=== PATIENT | female | born 1970 | race Caucasian/White ===

== ENCOUNTER 2017-02-05 05:07 | Emergency (ER) | payer OTHER ==
[~2017-02-05] VITALS: Ht 175.3 cm; Wt 125.5 kg
[2017-02-05 05:17] VITALS: Ht 175.3 cm; Wt 125.5 kg
[2017-02-05] MEDS ORDERED: LIDOCAINE 1% (MDV) 20 ML INJ SC ONE (07:00)
[2017-02-05] MEDS ORDERED: ACETAMINOPHEN 325 MG TAB PO ONE (08:30)
[2017-02-05] MEDS ORDERED: ACET500C5 PO (09:19)
[2017-02-05] MEDS ORDERED: DOXY100T20 PO (09:30)
[2017-02-05] MEDS ORDERED: TRAM50TA2 PO (09:30)
[2017-02-05 09:45] VITALS: BP 138/95; PULSE 74; RESP 18; TEMP 98.2
--- NOTE | 2017-02-05 10:06 | ERD ---
ER Documentation Chief Complaint Date/Time DATE: 02/05/17 TIME: 10:00 Chief Complaint abscess to left labia, not draining and warm to touch per pt HPI 46-year-old female with a past medical history of HIV, hypertension, hyperlipidemia presents to the ED complaining of pain and cystlike structure on the suprapubic area of the left labia. Denies any fever, chills, abdominal pain , nausea, vomiting, diarrhea, no bleeding, vaginal discharge. Reports that her T-cell count was [id number]. Reports that she takes Kaletra, Truvada, Acyclovir , Pravastatin, Carvedilol, Amlodipine and Losartan. States that she smokes but denies any alcohol or drug use. ROS All systems reviewed and are negative except as per history of present illness. Medications Home Meds Active Scripts Doxycycline Hyclate* (Doxycycline Hyclate*) 100 Mg Tablet.dr, 100 MG PO BID for 10 Days, TAB Prov:SELWYN MANE PA-C 02/05/17 Tramadol HCl (Tramadol HCl) 50 Mg Tablet, 50 MG PO Q4 Y for PAIN, #20 TAB Prov:SELWYN MANE PA-C 02/05/17 PMhx/Soc History of Surgery: No Anesthesia Reaction: No Hx Neurological Disorder: No Hx Respiratory Disorders: No Hx Cardiac Disorders: No Hx Psychiatric Problems: No Hx Miscellaneous Medical Probl: Yes (HIV +) Hx Alcohol Use: Yes (SOCIALLY) Hx Substance Use: No Hx Tobacco Use: Yes (CIGGARETES) Smoking Status: Never smoker Physical Exam Vitals Vital Signs Date Time Temp Pulse Resp B/P Pulse Ox O2 Delivery O2 Flow Rate FiO2 02/05/17 05:17 96.0 81 20 142/99 20 Physical Exam Const: Kuf-ohz-[id number], well-nourished. In no acute distress. Head: Atraumatic, normocephalic Eyes: Normal Conjunctiva without injection. No purulent discharge. ENT: Normal external ear, nose. Moist oropharynx without tonsillar exudates. Non -erythematous pharynx. Uvula midline. No drooling. No trismus. Neck: No cervical midline tenderness. Full range of motion. No meningismus. No cervical lymphadenopathy. No JVD. Resp: Clear to auscultation bilaterally. No wheezing, rhonchi, rales, or crackles. No accessory muscle use. No retractions. Cardio: Regular rate and rhythm. No murmurs, rubs or gallops. Abd: Soft, nontender, non distended. Normal bowel sounds. No palpable masses. No rebound tenderness. No guarding. Negative McBurney's point. Negative psoas sign. Negative obturator sign. : 2 cm x 2 cm fluctuance noted over the left suprapubic region with no slight surrounding erythema. No edema, lymphatic streaking. No vaginal discharge, vaginal bleeding noted. Skin: No petechiae or rashes Back: No midline tenderness. No CVA tenderness. Ext: No cyanosis, or edema. Neur: Awake and alert. Normal gait. Normal coordination. Psych: Normal Mood and Affect Results 24 hrs Current Medications Medications (Trade) Dose Ordered Sig/Marian Route PRN Reason Start Time Stop Time Status Last Admin Dose Admin Lidocaine (Xylocaine 1% (Mdv) 20 ml) 20 ml ONCE ONCE SC 02/05/17 07:00 02/05/17 07:01 DC Acetaminophen (Tylenol Tab) 650 mg ONCE ONCE PO 02/05/17 08:30 02/05/17 08:32 DC 02/05/17 09:04 Procedures/MDM 46-year-old female with a past medical history of HIV, hyperlipidemia, hypertension presents to the ED complaining of a painful fluctuance noted over the left suprapubic region. Patient is afebrile and nontoxic-appearing. Patient has normal vital signs. At this time patient gave consent to perform an incision and drainage. Patient was given Tylenol with relief of symptoms. Patient gave consent to perform incision and drainage. 11 blade scalpel used to make a small incision. Abscess Incision and Drainage with irrigation by me: Location: Left suprapubic region Anesthesia: [10 cc Local 1% Lidocaine] Technique: [Irrigated. Disrupted loculations w/ instrumentation ] Packing: [None] Complications: [Neurovascularly intact post procedure] Cheesy discharge was drained from the cystlike region - patient likely has a sebaceous cyst. Low suspicion for deep space infection, cellulitis, UTI, pyelonephritis, or other emergent conditions. This case discussed with the patient's primary care physician, Dr. Alcocer. Stated that patient's T-cell count is within normal limits and can be treated like an HIV free patient with the medications that are prescribed to patient. This was discussed with my supervising physician Dr. Benavidez who agreed with the management and discharge plan. Doxycycline was prescribed to patient due to slight erythema and warmth to touch noted of suprapubic region for coverages of infected sebaceous cyst. Tramadol was prescribed for pain. Instructed patient to return to the ED sooner for any worsening symptoms. Follow up with primary care physician or return to the ED in 2 days for a wound check. Patient's questions were answered. Patient understood and agreed with discharge plan. Departure Diagnosis: Primary Impression: Sebaceous cyst Condition: Stable Patient Instructions: Sebaceous Cyst, Infected (I And D), Sebaceous Cyst Referrals: [facility] YOU HAVE RECEIVED A MEDICAL SCREENING EXAM AND THE RESULTS INDICATE THAT YOU DO NOT HAVE A CONDITION THAT REQUIRES URGENT TREATMENT IN THE EMERGENCY DEPARTMENT. FURTHER EVALUATION AND TREATMENT OF YOUR CONDITION CAN WAIT UNTIL YOU ARE SEEN IN YOUR DOCTORS OFFICE WITHIN THE NEXT 1-2 DAYS. IT IS YOUR RESPONSIBILITY TO MAKE AN APPOINTMENT FOR FOLOW-UP CARE. IF YOU HAVE A PRIMARY DOCTOR --you should call your primary doctor and schedule an appointment IF YOU DO NOT HAVE A PRIMARY DOCTOR YOU CAN CALL OUR PHYSICIAN REFERRAL HOTLINE AT IF YOU CAN NOT AFFORD TO SEE A PHYSICIAN YOU CAN CHOSE FROM THE FOLLOWING [facility] [address] [facility]. [facility] [address] [facility]. [facility] [address] [facility]. [facility] [address] [facility]. [facility] [address] [facility]. [facility]. [address] [facility]. [facility] YOU HAVE RECEIVED A MEDICAL SCREENING EXAM AND THE RESULTS INDICATE THAT YOU DO NOT HAVE A CONDITION THAT REQUIRES URGENT TREATMENT IN THE EMERGENCY DEPARTMENT. FURTHER EVALUATION AND TREATMENT OF YOUR CONDITION CAN WAIT UNTIL YOU ARE SEEN IN YOUR DOCTORS OFFICE WITHIN THE NEXT 1-2 DAYS. IT IS YOUR RESPONSIBILITY TO MAKE AN APPOINTMENT FOR FOLOW-UP CARE. IF YOU HAVE A PRIMARY DOCTOR --you should call your primary doctor and schedule and appointment IF YOU DO NOT HAVE A PRIMARY DOCTOR YOU CAN CALL OUR PHYSICIAN REFERRAL HOTLINE AT . IF YOU CAN NOT AFFORD TO SEE A PHYSICIAN YOU CAN CHOSE FROM THE FOLLOWING [facility] INSTITUTIONS: [facility] [address] [place] [address] [facility] [address] [place] [address] [facility] [address] [place] [address] [facility] Additional Instructions: Call your primary care doctor TOMORROW for an appointment during the next 1-2 days.See the doctor sooner or return here if your condition worsens before your appointment time. SELWYN MANE PA-C Feb 05, 2017 10:05
== END 2017-02-05 09:45 | disposition home or self-care (01) ==
LOC: FTE 05:07
DX: L72.3 Sebaceous cyst (principal); I10 Essential (primary) hypertension; F17.210 Nicotine dependence, cigarettes, uncomplicated
CPT/HCPCS: 10060; Z7610

== ENCOUNTER 2018-05-27 06:04 | Emergency (ER) | END 2018-05-27 07:21 | disposition home or self-care (01) ==